=== PATIENT | female | born 1950 | race African-American/Black ===

== ENCOUNTER 2020-01-08 12:56 | Outpatient (CLI) | payer MEDICARE, MEDICAID ==
--- NOTE | 2020-01-08 15:24 | RAD ---
Lumbar spine 4 views flexion and extension HISTORY: Low back pain. Prior surgery. Lumbosacral plexus disorder. FINDINGS: Transitional vertebra at the lumbosacral junction is above the level of the lowest movable disc space. Iliac crests also peak at the superior endplate of this transitional lumbar vertebra on the lateral view. Therefore it will be designated as L5, although this leaves no ribs at what may be the T12 level. Remainder of the lumbar vertebrae will be numbered accordingly. Bilateral pedicle screws and vertical rods at the L4-5 level with surgical absence of the posterior e lements and interbody fusion device. No vanessa-hardware lucency. Other pedicles are intact. At the L3-4 level, there is disc space narrowing and discogenic endplate changes. 0.3 cm spondylolisthesis a t this level does not change upon flexion or extension. Osteophytosis of the lower facets. Other alignment normal. Calcification over the arterial structures. IMPRESSION : Postoperative and osseous degenerative changes of these lumbar spine as detailed above. No acute osse ous abnormalities are demonstrated. Atherosclerosis.
--- NOTE | 2020-01-08 15:50 | MRI ---
MRI OF THE PELVIS WITH AND WITHOUT CONTRAST: INDICATION: History of right-sided hip pain with history spinal fusion. TECHNIQUE: Multiplanar multisequence MR images were obtained of the pelvis with close attention to the sacral pl exus and the course of the sciatic nerve. Examination was performed with and without contrast. The patient received a total of 20 cc of MultiHance for the examination. COMPARISON: No comparisons are available. FINDINGS: There is susceptibility artifact from spinal instrumentation at L4 and L5 consistent with a posterior lumbar interbody fusion. There is a mild degenerative change involving the the SI joints. No acute fracture is evident. The visualized intrapelvic contents appear within normal limits. No free fluid is identified. Tiny c alcified fibroids are present within the uterus. One of the most prominent is seen within the posterior uterine fundus measuring 8 mm. No free fluid or enlarged lymph nodes are present. The sacral neural foramina appear patent. The visualized course of the sciatic nerve particularly on the right is in the expected course along the anterior aspect of the piriformis. There is no signal abnormality involving the piriformis. No accessory piriformis is present. The sciatic nerve demonstra gracie a normal signal intensity without evidence of abnormal enhancement. Presacral soft tissues are normal appearing. IMPRESSION: 1. Patent sacral neural foramina. 2. Visualized course of the sciatic nerve is as expected. There is no evidence to suggest presence of a piriformis syndrome by imaging. 3. Fibroid uterus Transcribed Date/Time: 01/08/2020 3:53 PM
== END 2020-01-08 12:57 | disposition home or self-care (01) ==
LOC: MRI 12:56
PROVIDERS: ATTEND Neurological Surgery
DX: G54.1 Lumbosacral plexus disorders (principal); M54.5 Low back pain; M47.816 Spondylosis without myelopathy or radiculopathy, lumbar region; I70.90 Unspecified atherosclerosis; D25.9 Leiomyoma of uterus, unspecified; Z98.1 Arthrodesis status
CPT/HCPCS: 72110; 72197; 82565

== ENCOUNTER 2020-02-25 12:23 | Outpatient (CLI) | payer MEDICARE, MEDICAID ==
--- NOTE | 2020-02-25 14:19 | MRI ---
MRI OF RIGHT THIGH PERFORMED WITHOUT CONTRAST ENHANCEMENT: HISTORY: The patient states they have pain in right leg from the buttocks region to the knee since falling 10 months ago. FINDINGS: The marrow signal change within the femur is normal. No abnormal signal change or signs of any old o r new fracture. The hamstring tendon origin shows fairly minimal tendinosis-type change. Muscle groups are symmetric in appearance. Imaging was performed to just at the level of the patella and shows no abnormal find ings. No signs of any soft tissue mass or muscle strain. I do not appreciate any type of hamstring tendon injury. If the patient's is possible referable to the knee region, then dedicated knee MRI wo uld be recommended. IMPRESSION: Unremarkable MRI of the femur. POS: [facility]
== END 2020-02-25 12:24 | disposition home or self-care (01) ==
LOC: BICMRI 12:23
PROVIDERS: ATTEND Neurological Surgery
DX: M54.30 Sciatica, unspecified side (principal); M79.604 Pain in right leg